=== PATIENT | female | born 1970 | race Caucasian/White ===

== ENCOUNTER 2020-05-03 04:52 | Day surgery (SDC) | payer BC ==
[2020-05-01 10:14] VITALS: BMI 28.7
--- NOTE | 2020-05-03 09:52 | HP ---
[facility] - Chief Complaint Chief Complaint: left cts - Past Medical History Allergies/Adverse Reactions: Allergies Allergy/AdvReac Type Severity Reaction Status Date / Time No Known Allergies Allergy Verified 05/03/20 09:44 ...LMP: 11/11/19 - Current Medications Current Medications: Home Medications Medication Instructions Recorded Desloratadine 5 mg PO DAILY 05/01/20 Simvastatin 5 mg PO DAILY 05/01/20 Hydrocodone/Acetaminophen 1 each PO Q6H #20 tablet MDD 4 05/03/20 [Hydrocodone-Acetamin 5-325 mg] [facility] Physical Exam - Physical Examination Vital Signs: Vital Signs Period Temp Pulse Resp BP Sys/Lyon Pulse Ox Last 24 Hr 98.0 F 93 16 116/96 97 General Appearance: Well Nourished, Well Developed, Alert & Oriented x3 ENT: Clear Lung: Normal air movement Extremities: Other (left hand- + tinels, + phalens, emg + cts) Neurological: Intact, Alert, Oriented [facility] Impression/Plan - Impression/Plan Impression: left cts Operative Procedure: left ctr Date to be Performed: 05/03/20
[2020-05-03] MEDS ORDERED: LIDOCAINE HCL 1%, 10 MG/ML (20ML VIAL) ONE (13:14)
[2020-05-03] MEDS ORDERED: PROPOFOL 20 ML ONE (13:35)
[2020-05-03] MEDS ORDERED: MIDAZOLAM HCL 2 MG/2 ML SINGLE DOSE VIAL ONE ×2 (13:35)
[2020-05-03] MEDS ORDERED: ceFAZolin SODIUM 1 GM VIAL IVPB ONE (13:43)
[2020-05-03] MEDS ORDERED: BUPIVACAINE HCL/PF 0.5% (5 MG/ML) 30 ML VIAL IJ ONE (13:55)
[2020-05-03] MEDS ORDERED: LIDOCAINE HCL 1%, 10 MG/ML (20ML VIAL) ID ONE (13:55)
[2020-05-03] MEDS ORDERED: ceFAZolin SODIUM 1 GM VIAL ONE (14:22)
[2020-05-03] MEDS ORDERED: PROMETHAZINE HCL 25 MG/1 ML VIAL IVPB PRN (14:28)
[2020-05-03] MEDS ORDERED: oxyCODONE HCL 5 MG TABLET PO PRN (14:28)
[2020-05-03] MEDS ORDERED: ONDANSETRON 4 MG/2 ML VIAL IVPUSH PRN (14:28)
--- NOTE | 2020-05-03 14:28 | OP ---
Operative Note - Note: Operative Date: 05/03/20 Pre-Operative Diagnosis: left CTS Operation: left CTR, tenosynovectomy Post-Operative Diagnosis: Same as Pre-op Surgeon: Pastor Boykin Anesthesiologist/TALENT ENGINEER: Hola Mcadams Anesthesia: Local, MAC Specimens Removed: tenosynovium Estimated Blood Loss (mls): 0 Drains, Volume Out (mls): 0 Blood Volume Replaced (mls): 0 Fluid Volume Replaced (mls): 500 Operative Report Dictated: Yes
[2020-05-03] MEDS ORDERED: ACETAMINOPHEN 500 MG TABLET (FP) PO ONE (14:52)
--- NOTE | 2020-05-03 15:01 | SPEC ---
DATE OF OPERATION: 05/03/2020 PREOPERATIVE DIAGNOSIS: Left carpal tunnel syndrome, tenosynovitis. POSTOPERATIVE DIAGNOSIS: Left carpal tunnel syndrome, tenosynovitis. PROCEDURE: Left carpal tunnel release and tenosynovectomy. SURGEON: Pastor Boykin MD ASSISTANTS: None. ANESTHESIOLOGIST: Hola Mcadams MD ANESTHESIA: MAC anesthesia with local injection of 12 mL 0.5% Marcaine, 1% lidocaine mix. DRAINS: None. COMPLICATIONS: None. BLOOD LOSS: None. BLOOD GIVEN: None. FLUID REPLACEMENT: 500 mL. INDICATIONS: This patient is a 49-year-old female with a preoperative diagnosis of severe recurrent left carpal tunnel syndrome. After understanding the potential risks, complications, alternatives and benefits of surgery versus nonsurgical treatment, the patient elected to undergo this procedure. DESCRIPTION OF PROCEDURE: The patient was brought to the operating room, peripheral IV placed and intravenous sedation was given. Two grams of intravenous Ancef was given. MAC anesthesia was induced. A tourniquet was applied to the left upper arm and the left upper extremity was prepped and draped in sterile fashion. The entire case was done under 3.8 loupe magnification. A marking pen was utilized to rd out a longitudinal incision in an already existing skin crease. Twenty mL of 0.5% Marcaine mixed with 1% Lidocaine was injected in and around the surgical incision. The left upper extremity was elevated, exsanguinated with an Esmarch bandage and the tourniquet inflated to 250 mmHg. A No. 15 scalpel blade was utilized to cut down through the skin. Subcutaneous hemostasis was achieved with the bipolar cautery. Dissection was done through the superficial palmar fascia. Self-retaining retractors were placed into the wound. Under direct visualization, the transverse carpal ligament was transected with a No. 15 scalpel blade, exposing the median nerve and the contents of the carpal tunnel. The distal and proximal extents of the release were completed with a Littler scissor and checked with irrigation and my small finger. They were seen to be complete. Limited dissection was done on the radial side of the median nerve and more extensive dissection was done on the ulnar side of the median nerve. The patients nerve was seen to be quite compressed by epineurium and therefore a limited epineurotomy was performed. A Ragnell retractor was used to gently retract the median nerve in a radial direction. The patient had a lot of tenosynovitis and therefore a tenosynovectomy was performed off all 9 flexor tendons. This was passed off the field as specimen, tenosynovium left wrist. The floor of the carpal tunnel was checked. There were no abnormal masses or ganglion cysts. The area was copiously irrigated and washed out and closure begun. Undyed 4-0 Vicryl was used to close the deep dermal layer. Final skin reapproximation was done with horizontal mattress 4-0 nylon sutures. The area was then washed and dried, covered with Xeroform, 4 x 4's, fluffs between the fingers, Webril and a 4-inch plaster roll was utilized to make a volar splint, which was then wrapped with Edita and Coban. The tourniquet was taken down after a total tourniquet time of 16 minutes. There were no complications during the case. The patient tolerated the procedure well and was brought to the ambulatory recovery room in stable condition. Abad [id number]
[2020-05-03 15:49] VITALS: BP 130/89; PULSE 87; TEMP 96.6
--- NOTE | 2020-05-05 17:02 | PATH ---
Surgical Pathology Report Patient Name: ARAM YEBOAH [facility]. Rec. #: [id number] /Age/Gender: 1970 (Age: 49) / F Account: [id number] Location: [facility] Taken: 05/03/2020 Received: 05/04/2020 Reported: 05/05/2020 Physicians: Pastor Boykin M.D. Specimen(s) Received LEFT TENOSYNOVIUM Clinical History Carpal tunnel syndrome Final Diagnosis TENOSYNOVIUM, LEFT, EXCISION: TENOSYNOVIAL TISSUE WITH FOCAL FIBROSIS. Electronically Signed Bradford Cam M.D. Gross Description Received in formalin labeled "tenosynovium left," is a 2.2 x 1.7 x 0.3 cm aggregate of orellana-yellow portions of soft tissue. The specimen is entirely submitted in one cassette. /05/04/2020 saudi05/04/2020
== END 2020-05-03 16:20 | disposition home or self-care (01) ==
LOC: JASU-SURG 04:52
PROVIDERS: ATTEND Orthopaedic Surgery
PROC: 0LB80ZZ Excision of Left Hand Tendon, Open Approach (ICD-10-PCS; 2020-05-03)
PROC: 01N50ZZ Release Median Nerve, Open Approach (ICD-10-PCS; principal; 2020-05-03 11:30)
DX: G56.02 Carpal tunnel syndrome, left upper limb (principal); M65.842 Other synovitis and tenosynovitis, left hand
CPT/HCPCS: 84703; 88304-TC; 94760

== ENCOUNTER 2021-07-25 04:37 | Day surgery (SDC) | payer BC ==
[2021-07-23 16:03] VITALS: BMI 29.2
[~2021-07-25 04:37] MED LIST: BUPIVACAINE HCL/PF 0.5% (5MG/ML) 10 ML VIAL IJ ONE; LIDOCAINE HCL 1%, 10 MG/ML (20ML VIAL) INF ONE
[2021-07-25 07:15] LABS: INR 0.89 (0.83-1.09); PROTHROMBIN TIME (PATIENT) 10.4 SEC (9.7-13.0)
[2021-07-25 07:18] LABS: ACTIVATED PTT 26.8 SECONDS (25.2-36.5)
[2021-07-25] MEDS ORDERED: BUPIVACAINE HCL/PF 0.5% (5MG/ML) 10 ML VIAL ONE (07:26)
[2021-07-25] MEDS ORDERED: LIDOCAINE HCL 1%, 10 MG/ML (20ML VIAL) ONE (07:26)
[2021-07-25] MEDS ORDERED: PROPOFOL 20 ML ONE ×3 (07:57→08:46)
[2021-07-25] MEDS ORDERED: MIDAZOLAM HCL 2 MG/2 ML SINGLE DOSE VIAL ONE (07:57)
[2021-07-25] MEDS ORDERED: ceFAZolin 2 GRAM PREMIX BAG IVPB ONE (08:28)
[2021-07-25] MEDS ORDERED: DEXAMETHASONE SOD PHOSPHATE 4 MG/1 ML VIAL ONE (08:31)
[2021-07-25] MEDS ORDERED: ceFAZolin SODIUM 1 GM VIAL ONE (08:36)
[2021-07-25] MEDS ORDERED: LIDOCAINE HCL 1%, 10 MG/ML (20ML VIAL) INF ONE (08:48)
[2021-07-25] MEDS ORDERED: BUPIVACAINE HCL/PF 0.5% (5MG/ML) 10 ML VIAL IJ ONE (08:48)
[2021-07-25] MEDS ORDERED: ACETAMINOPHEN 325 MG TABLET (FP) ONE (10:27)
[2021-07-25] MEDS ORDERED: ACETAMINOPHEN 325 MG TABLET (FP) PO ONE (10:30)
[2021-07-25 11:35] VITALS: TEMP 97.2
[2021-07-25 11:36] VITALS: BP 140/100; PULSE 80
== END 2021-07-25 11:40 | disposition home or self-care (01) ==
LOC: JASU-SURG 04:37
PROVIDERS: ATTEND Orthopaedic Surgery
PROC: 01N50ZZ Release Median Nerve, Open Approach (ICD-10-PCS; principal; 2021-07-25 08:00)
DX: G56.01 Carpal tunnel syndrome, right upper limb (principal)
CPT/HCPCS: 36415; 81025; 85610; 85730